=== PATIENT | female | born 1985 | race Asian ===

== ENCOUNTER 2025-09-14 16:11 | Emergency (ER) | payer OTHER ==
[~2025-09-14] VITALS: Ht 152.4 cm; Wt 54.0 kg
[2025-09-14 17:59] VITALS: BP 145/88; TEMP 98.2; O2SAT 98
== END 2025-09-14 18:02 | disposition home or self-care (01) ==
LOC: M ED 16:11
DX: S06.0X0A Concussion without loss of consciousness, initial encounter (principal); S13.4XXA Sprain of ligaments of cervical spine, initial encounter; Y92.9 Unspecified place or not applicable; Y93.9 Activity, unspecified; Y99.9 Unspecified external cause status; V49.40XA Driver injured in collision with unspecified motor vehicles in traffic accident, initial encounter; M50.322 Other cervical disc degeneration at C5-C6 level